=== PATIENT | male | born 2000 | race Hispanic/Latino ===

== ENCOUNTER 2022-06-27 20:38 | Emergency (ER) | payer OTHER ==
[~2022-06-27 20:38] MED LIST: Iopamidol 370 76% 100 ML VIAL ONE
[2022-06-28] MEDS ORDERED: Ondansetron PF 4 MG/2 ML Vial ONE ×2 (00:09→01:35)
[2022-06-28] MEDS ORDERED: Morphine 4 MG/ML VIAL ONE (00:09)
[2022-06-28] MEDS ORDERED: Ketorolac Tromethamine 30 MG/ML VIAL ONE (00:09)
[2022-06-28 00:15] LABS: #Eosinphils 0.2 thou/uL (0.0-0.7); #Lymphocytes 3.4 thou/uL (1.20-3.40); #Monocytes 0.8 thou/uL (0.11-0.59); #Neutrophils 6.3 thou/uL (1.40-6.50); %Basophils 0.3 % (0.0-1.0); %Eosinophils 2.2 % (0.0-10.0); %Lymphocytes 31.8 % (21.0-51.0); %Monocytes 7.7 % (0.0-10.0); %Neutrophils 58.1 % (42.0-75.0); Mean Corpuscular HGB CONC 34.1 g/dL (32.0-36.0); Mean Corpuscular Hemoglobin 31.2 pg (27.0-31.0); Mean Corpuscular Volume 91.4 fl (78.0-98.0); Mean Platelet Volume 7.6 fL (7.4-10.4); Platelet Count 282 thou/uL (130-400); RBC Distribution Width 11.1 % (11.5-14.5); White Blood Cell (WBC) Count 10.8 thou/uL (4.8-10.8)
[2022-06-28 00:37] LABS: ALT (SGPT) 29 U/L (8-55); AST (SGOT) 24 U/L (5-34); Albumin 4.5 g/dL (3.5-5.0); Alkaline Phosphatase 65 U/L (40-110); Anion Gap 14 mmol/L (10-20); BUN (Urea Nitrogen) 18 mg/dL (8.9-20.6); Bilirubin, Total 0.3 mg/dL (0.2-1.2); Calc. Creatinine Clearance 0 mL/min (70-130); Calcium 9.6 mg/dL (7.8-10.44); Carbon Dioxide 25 mmol/L (22-29); Chloride 105 mmol/L (98-107); Estimated GFR 99; Globulin 2.7 g/dL (2.4-3.5); Glucose 92 mg/dL (70-105); Lipase 22 U/L (8-78); Potassium 3.9 mmol/L (3.5-5.1); Protein, Total 7.2 g/dL (6.0-8.3); Sodium 140 mmol/L (136-145)
[2022-06-28 00:39] LABS: Bilirubin Negative (Negative); Blood, Urine Negative (Negative); Clarity Clear (Clear); Glucose, Urine (Dipstick) Normal (Negative); Ketone, Urine Negative (Negative); Leukocyte Negative Leu/uL (Negative); Nitrite Negative (Negative); Protein, Urine (Dipstick) Negative (Neg-Trace); Specific Gravity, Urine 1.029 (1.002-1.036); Urobilinogen Normal mg/dL (Less than 2); pH, Urine 6.5 (5.0-9.0)
[2022-06-28] MEDS ORDERED: Diazepam 10 MG/2 ML SYRINGE ONE (01:34)
[2022-06-28] MEDS ORDERED: Diazepam 5 MG TAB ONE (02:59)
== END 2022-06-28 03:07 | disposition home or self-care (01) ==
LOC: ERS 20:38
DX: M54.50 Low back pain, unspecified (principal); F17.290 Nicotine dependence, other tobacco product, uncomplicated
CPT/HCPCS: 74177; 80053; 81003; 83690; 85025; 96374; 96375; 96376; J1885; J2270; J2405; J3360; Q9967